=== PATIENT | male | born 1960 | race Caucasian/White ===

== ENCOUNTER 2024-07-14 12:19 | Day surgery (SDC) | payer OTHER ==
[~2024-07-14] VITALS: Ht 180.3 cm; Wt 106.5 kg
[~2024-07-14 12:19] MED LIST: CEPH500 PO; Lactated Ringer's 1,000 ML IV ONE; Percocet 5-3251 EACH PO; propofoL 50 ML IV ONE
[2024-07-14] MEDS ORDERED: ATOR40TA (13:29)
[2024-07-14] MEDS ORDERED: METO100 (13:29)
[2024-07-14] MEDS ORDERED: FOLI1 (13:29)
[2024-07-14] MEDS ORDERED: METO5A (13:30)
[2024-07-14] MEDS ORDERED: LISI20 (13:30)
[2024-07-14] MEDS ORDERED: NABU750 (13:30)
[2024-07-14] MEDS ORDERED: TADA10TA (13:31)
[2024-07-14] MEDS ORDERED: OMEP20ER (13:53)
[2024-07-14] MEDS ORDERED: Lactated Ringer's 1,000 ML IV ONE (14:15)
[2024-07-14 16:06] VITALS: BP 119/82
== END 2024-07-14 15:35 | disposition home or self-care (01) ==
LOC: ORSCSDS 12:19
PROVIDERS: Internal Medicine Gastroenterology
PROC: 0DB58ZX Excision of Esophagus, Via Natural or Artificial Opening Endoscopic, Diagnostic (ICD-10-PCS; principal; 2024-07-14 13:30)
PROC: 0DB98ZX Excision of Duodenum, Via Natural or Artificial Opening Endoscopic, Diagnostic (ICD-10-PCS; principal; 2024-07-14 13:30)
DX: R13.10 Dysphagia, unspecified (principal); D13.2 Benign neoplasm of duodenum; K21.00 Gastro-esophageal reflux disease with esophagitis, without bleeding; I10 Essential (primary) hypertension; E78.5 Hyperlipidemia, unspecified; N40.0 Benign prostatic hyperplasia without lower urinary tract symptoms; Z79.899 Other long term (current) drug therapy
CPT/HCPCS: 88305; J2704; J7120

== ENCOUNTER 2024-11-12 08:33 | Day surgery (SDC) | payer OTHER ==
[~2024-11-12] VITALS: Ht 154.9 cm; Wt 113.1 kg
[~2024-11-12 08:33] MED LIST changes: +ATOR40TA; +FOLI1; +LISI20; +METO100; +METO5A; +NABU750; +OMEP20ER; +TADA10TA
[2024-11-12] MEDS ORDERED: Lactated Ringer's 1,000 ML IV ONE (10:04)
[2024-11-12 11:39] VITALS: BP 134/95
== END 2024-11-12 11:34 | disposition home or self-care (01) ==
LOC: ORSCSDS 08:33
PROVIDERS: Internal Medicine Gastroenterology
PROC: 0DB98ZX Excision of Duodenum, Via Natural or Artificial Opening Endoscopic, Diagnostic (ICD-10-PCS; principal; 2024-11-12 10:15)
DX: D13.2 Benign neoplasm of duodenum (principal); K29.80 Duodenitis without bleeding; I10 Essential (primary) hypertension; E78.5 Hyperlipidemia, unspecified; Z79.899 Other long term (current) drug therapy
CPT/HCPCS: 88305; J2704; J7120